=== PATIENT | male | born 1975 ===

== ENCOUNTER 2018-10-29 08:32 | Day surgery (SDC) | payer OTHER | END 2018-10-29 13:30 | disposition home or self-care (01) | LOC: AMB-ENDOS 08:32 | DX: K57.32 Diverticulitis of large intestine without perforation or abscess without bleeding (principal) ==

== ENCOUNTER 2020-05-15 13:05 | Emergency (ER) | payer OTHER ==
[~2020-05-15] VITALS: Ht 177.8 cm; Wt 83.9 kg
[2020-05-15] MEDS ORDERED: TAMS0.4C (13:25)
[2020-05-15] MEDS ORDERED: PEPCID AC20 MG (13:25)
[2020-05-15] MEDS ORDERED: DOK100 MG (13:27)
== END 2020-05-15 18:35 | disposition home or self-care (01) ==
LOC: ER 13:05
DX: M94.0 Chondrocostal junction syndrome [Tietze] (principal)